=== PATIENT | male | born 1955 | race Asian ===

== ENCOUNTER 2023-03-03 17:46 | Inpatient (IN) | payer MEDICARE ==
[~2023-03-03] VITALS: Ht 170.2 cm; Wt 84.8 kg
[2023-03-03 20:52] LABS: BASOPHILS % (AUTO) 0.5 % (0.0-2.0); EOSINOPHILS # (AUTO) 0.1 K/uL (0.0-0.7); EOSINOPHILS % (AUTO) 2.3 % (0.0-6.0); HEMATOCRIT 39 % (39-51); HEMOGLOBIN 13.4 g/dL (13.5-17.5); LYMPHOCYTES # (AUTO) 2.2 K/uL (0.8-4.8); LYMPHOCYTES % (AUTO) 35.2 % (20.0-44.0); MEAN CORPUSCULAR HEMOGLOBIN 29 PG (26.0-33.0); MEAN CORPUSCULAR HGB CONC 35 g/dl (31.0-36.0); MEAN CORPUSCULAR VOLUME 85 fL (80-96); MONOCYTES # (AUTO) 0.6 K/uL (0.1-1.30); MONOCYTES % (AUTO) 9.5 % (2.0-12.0); NEUTROPHILS # (AUTO) 3.3 K/uL (1.8-8.9); NEUTROPHILS % (AUTO) 52.5 % (43.0-81.0); PLATELET COUNT (AUTO) 281 K/uL (150-450); RED BLOOD CELL COUNT(AUTO) 4.59 MIL/uL (4.5-6.0); WHITE BLOOD COUNT (AUTO) 6.4 K/uL (4.3-11.0)
[2023-03-03 21:05] LABS: CREATININE 0.8 mg/dL (0.6-1.3); POTASSIUM 3.9 mmol/L (3.5-5.1)
[2023-03-03 21:11] LABS: ALBUMIN 4.2 g/dL (3.4-5.0); BILIRUBIN,TOTAL 0.6 mg/dL (0.2-1.0)
[2023-03-03] MEDS ORDERED: ASPIRIN 325 MG TABLET PO ONE (21:30)
[2023-03-03] MEDS ORDERED: IV NS 0.9% 1,000 ML BAG IV ONE (21:30)
[2023-03-03] MEDS ORDERED: ACETAMINOPHEN ES 500 MG TABLET ONE (22:25)
[2023-03-03] MEDS ORDERED: ACETAMINOPHEN ES 500 MG TABLET PO ONE (22:30)
[2023-03-03] MEDS ORDERED: LABETALOL HCL IV 100MG VIAL IV ONE (23:00)
[2023-03-03 23:45] VITALS: BP 180/98; TEMP 97.9; O2SAT 100
[2023-03-04] MEDS ORDERED: MAG HYDROX/AL HYDROX/SIMETH 30 ML UDC PO PRN
[2023-03-04] MEDS ORDERED: ENOXAPARIN SODIUM 100 MG/ML DISP.SYRIN SQ SCH
[2023-03-04] MEDS: ATORVASTATIN 10 MG TABLET PO SCH ×2 (00:21→21:47)
[2023-03-04 01:08] VITALS: BP 180/98; TEMP 98; O2SAT 99
[2023-03-04] MEDS: ACETAMINOPHEN 325 MG TABLET PO PRN ×2 (01:20→11:59)
[2023-03-04 04:00] VITALS: BP 166/97; TEMP 97.5; O2SAT 98
[2023-03-04] MEDS: hydrALAZINE HCL IV 20 MG VIAL IV PRN ×2 (04:47→18:45)
[2023-03-04 06:44] LABS: BASOPHILS % (AUTO) 0.5 % (0.0-2.0); EOSINOPHILS # (AUTO) 0.1 K/uL (0.0-0.7); EOSINOPHILS % (AUTO) 2.6 % (0.0-6.0); HEMATOCRIT 37 % (39-51); HEMOGLOBIN 12.7 g/dL (13.5-17.5); LYMPHOCYTES # (AUTO) 2.1 K/uL (0.8-4.8); LYMPHOCYTES % (AUTO) 39.4 % (20.0-44.0); MEAN CORPUSCULAR HEMOGLOBIN 29 PG (26.0-33.0); MEAN CORPUSCULAR HGB CONC 34 g/dl (31.0-36.0); MEAN CORPUSCULAR VOLUME 85 fL (80-96); MONOCYTES # (AUTO) 0.6 K/uL (0.1-1.30); MONOCYTES % (AUTO) 10.8 % (2.0-12.0); NEUTROPHILS # (AUTO) 2.5 K/uL (1.8-8.9); NEUTROPHILS % (AUTO) 46.7 % (43.0-81.0); PLATELET COUNT (AUTO) 251 K/uL (150-450); RED BLOOD CELL COUNT(AUTO) 4.37 MIL/uL (4.5-6.0); RED CELL DISTRIBUTION WIDTH 13.6 % (11.5-15.0); WHITE BLOOD COUNT (AUTO) 5.3 K/uL (4.3-11.0)
[2023-03-04 06:57] LABS: CALCIUM, SERUM 8.4 mg/dL (8.5-10.1); CREATININE 0.8 mg/dL (0.6-1.3); MAGNESIUM 2.1 mg/dL (1.8-2.4); PHOSPHORUS 3.7 mg/dL (2.5-4.9); POTASSIUM 3.3 mmol/L (3.5-5.1)
[2023-03-04] MEDS ORDERED: GLIM2TAB31 PO (08:48)
[2023-03-04] MEDS ORDERED: LOSA1TAB36 PO (08:48)
[2023-03-04] MEDS ORDERED: LISINOPRIL (10MG) 10 MG TABLET PO SCH (09:00)
[2023-03-04] MEDS: POTASSIUM CHLORIDE 20 MEQ TAB.PRT.SR PO SCH ×2 (09:13→09:20)
[2023-03-04] MEDS: METOPROLOL TARTRATE 50 MG TABLET PO SCH ×2 (09:14→22:21)
[2023-03-04] MEDS: ASPIRIN 81 MG TAB.CHEW PO SCH (09:15)
[2023-03-04] MEDS: LISINOPRIL (10MG) 10 MG TABLET PO SCH (09:19)
[2023-03-04] MEDS: ENOXAPARIN SODIUM 80 MG/0.8 ML DISP.SYRIN SQ SCH ×2 (09:19→22:22)
[2023-03-04] MEDS: ONDANSETRON HCL/PF 4 MG/2 ML VIAL IVP PRN (09:51)
[2023-03-04] MEDS ORDERED: IOHEXOL-350 100 ML VIAL IV ONE (11:15)
[2023-03-04] MEDS ORDERED: NITROGLYCERIN 0.4 MG/TAB BOTTLE ONE (11:15)
[2023-03-04] MEDS ORDERED: METOPROLOL TARTRATE INJ 5 MG/5 ML AMPUL ONE ×2 (11:16→11:30)
[2023-03-04] MEDS ORDERED: IV NS 0.9% 250 ML IV ONE (11:16)
[2023-03-04] MEDS ORDERED: CT SWABBABLE VALVE TRANS SET 1 EA INFUS.SET MC ONE (11:16)
[2023-03-04] MEDS: METOPROLOL TARTRATE INJ 5 MG/5 ML AMPUL IVP PRN ×4 (11:20→11:35)
[2023-03-04] MEDS ORDERED: NITROGLYCERIN 0.4 MG/TAB BOTTLE SL ONE (11:30)
[2023-03-04] MEDS ORDERED: LORAZEPAM 1 MG TABLET PO PRN (16:00)
[2023-03-04 23:10] VITALS: BP 133/81
[2023-03-05] MEDS: ZOLPIDEM TARTRATE 5 MG TABLET PO PRN ×2 (02:08→23:29)
[2023-03-05] MEDS: ONDANSETRON HCL/PF 4 MG/2 ML VIAL IVP PRN (02:54)
[2023-03-05 06:24] LABS: BASOPHILS % (AUTO) 0.4 % (0.0-2.0); EOSINOPHILS # (AUTO) 0.1 K/uL (0.0-0.7); EOSINOPHILS % (AUTO) 1.1 % (0.0-6.0); HEMATOCRIT 41 % (39-51); HEMOGLOBIN 14.5 g/dL (13.5-17.5); LYMPHOCYTES # (AUTO) 1.1 K/uL (0.8-4.8); LYMPHOCYTES % (AUTO) 14.9 % (20.0-44.0); MEAN CORPUSCULAR HEMOGLOBIN 29 PG (26.0-33.0); MEAN CORPUSCULAR HGB CONC 35 g/dl (31.0-36.0); MEAN CORPUSCULAR VOLUME 84 fL (80-96); MONOCYTES % (AUTO) 12.9 % (2.0-12.0); NEUTROPHILS # (AUTO) 5.3 K/uL (1.8-8.9); NEUTROPHILS % (AUTO) 70.7 % (43.0-81.0); PLATELET COUNT (AUTO) 281 K/uL (150-450); RED BLOOD CELL COUNT(AUTO) 4.94 MIL/uL (4.5-6.0); RED CELL DISTRIBUTION WIDTH 13.8 % (11.5-15.0); WHITE BLOOD COUNT (AUTO) 7.5 K/uL (4.3-11.0)
[2023-03-05 06:41] LABS: ALBUMIN 4.1 g/dL (3.4-5.0); CALCIUM, SERUM 8.9 mg/dL (8.5-10.1); CREATININE 0.8 mg/dL (0.6-1.3); MAGNESIUM 2.1 mg/dL (1.8-2.4); PHOSPHORUS 3.8 mg/dL (2.5-4.9); POTASSIUM 3.9 mmol/L (3.5-5.1); TOTAL PROTEIN, SERUM 8.1 g/dL (6.4-8.2)
[2023-03-05 08:00] VITALS: BP 155/90; TEMP 99.5; O2SAT 97
[2023-03-05] MEDS: METOPROLOL TARTRATE 50 MG TABLET PO SCH ×2 (08:15→22:08)
[2023-03-05] MEDS: LISINOPRIL (10MG) 10 MG TABLET PO SCH (08:15)
[2023-03-05] MEDS ORDERED: IV Sodium Chloride 3% 500 ML 500 ML IV SCH ×2 (08:30→23:00)
[2023-03-05] MEDS: ASPIRIN 81 MG TAB.CHEW PO SCH ×2 (09:00→13:44)
[2023-03-05] MEDS: ENOXAPARIN SODIUM 80 MG/0.8 ML DISP.SYRIN SQ SCH ×3 (09:00→22:28)
[2023-03-05] MEDS: hydrALAZINE HCL IV 20 MG VIAL IV PRN (09:25)
[2023-03-05 09:46] LABS: INR 1.01 (0.91-1.10); PROTHROMBIN TIME 10.7 SECS (9.2-11.1)
[2023-03-05] MEDS ORDERED: NITROGLYCERIN IN 5 % DEXTROSE 250 ML IV ONE (10:29)
[2023-03-05] MEDS ORDERED: IV SET PRIMARY PUMP SET 1 EA INFUS.SET MC ONE (10:29)
[2023-03-05] MEDS ORDERED: LIDOCAINE HCL/MPF 1% 30 ML VIAL IJ ONE (10:29)
[2023-03-05] MEDS ORDERED: IV NS 0.9% 1,000 ML ONE (10:29)
[2023-03-05] MEDS ORDERED: IODIXANOL 150 ML IV ONE (10:56)
[2023-03-05 12:00] VITALS: BP 126/79; TEMP 99; O2SAT 96
[2023-03-05 12:57] LABS: CALCIUM, SERUM 8.7 mg/dL (8.5-10.1); CREATININE 0.9 mg/dL (0.6-1.3); POTASSIUM 3.8 mmol/L (3.5-5.1)
[2023-03-05] MEDS: ACETAMINOPHEN 325 MG TABLET PO PRN (13:01)
[2023-03-05 16:00] VITALS: BP 116/81; TEMP 98.6; O2SAT 98
[2023-03-05 20:00] VITALS: BP 131/86; TEMP 98.4; O2SAT 96
[2023-03-05] MEDS: BENZONATATE 100 MG CAPSULE PO PRN (20:30)
[2023-03-05] MEDS: ATORVASTATIN 10 MG TABLET PO SCH (21:49)
[2023-03-06] VITALS: BP 137/88; TEMP 97.5; O2SAT 98
[2023-03-06] MEDS ORDERED: IV Sodium Chloride 3% 500 ML 500 ML IV ONE (01:22)
[2023-03-06 04:00] VITALS: BP 148/68; TEMP 99; O2SAT 97
[2023-03-06 06:34] LABS: BASOPHILS % (AUTO) 0.5 % (0.0-2.0); EOSINOPHILS # (AUTO) 0.1 K/uL (0.0-0.7); EOSINOPHILS % (AUTO) 1.5 % (0.0-6.0); HEMATOCRIT 39 % (39-51); HEMOGLOBIN 13.4 g/dL (13.5-17.5); LYMPHOCYTES # (AUTO) 1.5 K/uL (0.8-4.8); LYMPHOCYTES % (AUTO) 26.7 % (20.0-44.0); MEAN CORPUSCULAR HEMOGLOBIN 30 PG (26.0-33.0); MEAN CORPUSCULAR HGB CONC 35 g/dl (31.0-36.0); MEAN CORPUSCULAR VOLUME 86 fL (80-96); MONOCYTES # (AUTO) 0.9 K/uL (0.1-1.30); NEUTROPHILS # (AUTO) 3.1 K/uL (1.8-8.9); NEUTROPHILS % (AUTO) 55.3 % (43.0-81.0); PLATELET COUNT (AUTO) 223 K/uL (150-450); RED BLOOD CELL COUNT(AUTO) 4.52 MIL/uL (4.5-6.0); RED CELL DISTRIBUTION WIDTH 13.8 % (11.5-15.0); WHITE BLOOD COUNT (AUTO) 5.7 K/uL (4.3-11.0)
[2023-03-06 07:11] LABS: CALCIUM, SERUM 8.1 mg/dL (8.5-10.1); CREATININE 0.8 mg/dL (0.6-1.3); MAGNESIUM 2.3 mg/dL (1.8-2.4)
[2023-03-06] MEDS: BENZONATATE 100 MG CAPSULE PO PRN ×2 (08:19→21:36)
[2023-03-06] MEDS ORDERED: LOSA1TAB36 PO (08:32)
[2023-03-06] MEDS ORDERED: ROSU20TA2 PO (08:33)
[2023-03-06] MEDS ORDERED: PANT20TA2 PO (08:36)
[2023-03-06] MEDS ORDERED: DAPA10TA PO (08:37)
[2023-03-06] MEDS: ASPIRIN 81 MG TAB.CHEW PO SCH (09:20)
[2023-03-06] MEDS: METOPROLOL TARTRATE 50 MG TABLET PO SCH ×2 (09:20→21:11)
[2023-03-06] MEDS: LISINOPRIL (10MG) 10 MG TABLET PO SCH (09:20)
[2023-03-06 09:30] VITALS: BP 135/84; TEMP 98.6; O2SAT 94
[2023-03-06] MEDS ORDERED: ENOXAPARIN SODIUM 80 MG/0.8 ML DISP.SYRIN SQ SCH (11:00)
[2023-03-06 13:00] VITALS: BP 122/86; TEMP 98.7; O2SAT 94
[2023-03-06] MEDS: ENOXAPARIN SODIUM 40 MG/0.4 ML DISP.SYRIN SQ SCH (15:26)
[2023-03-06 16:00] VITALS: BP 131/73; TEMP 98.5; O2SAT 98
[2023-03-06 20:00] VITALS: BP 160/84; TEMP 98.6; O2SAT 98
[2023-03-06] MEDS: ATORVASTATIN 10 MG TABLET PO SCH (21:12)
[2023-03-06] MEDS: ZOLPIDEM TARTRATE 5 MG TABLET PO PRN (23:24)
[2023-03-07 00:09] VITALS: BP 142/73; TEMP 97.5; O2SAT 98
[2023-03-07 04:00] VITALS: BP 150/67; TEMP 98.1; O2SAT 96
[2023-03-07 07:22] LABS: BASOPHILS % (AUTO) 0.5 % (0.0-2.0); EOSINOPHILS # (AUTO) 0.2 K/uL (0.0-0.7); EOSINOPHILS % (AUTO) 4.4 % (0.0-6.0); HEMATOCRIT 38 % (39-51); HEMOGLOBIN 12.9 g/dL (13.5-17.5); LYMPHOCYTES # (AUTO) 1.6 K/uL (0.8-4.8); LYMPHOCYTES % (AUTO) 34.9 % (20.0-44.0); MEAN CORPUSCULAR HEMOGLOBIN 30 PG (26.0-33.0); MEAN CORPUSCULAR HGB CONC 34 g/dl (31.0-36.0); MEAN CORPUSCULAR VOLUME 86 fL (80-96); MONOCYTES # (AUTO) 0.7 K/uL (0.1-1.30); MONOCYTES % (AUTO) 14.5 % (2.0-12.0); NEUTROPHILS # (AUTO) 2.1 K/uL (1.8-8.9); NEUTROPHILS % (AUTO) 45.7 % (43.0-81.0); PLATELET COUNT (AUTO) 226 K/uL (150-450); RED BLOOD CELL COUNT(AUTO) 4.36 MIL/uL (4.5-6.0); RED CELL DISTRIBUTION WIDTH 13.9 % (11.5-15.0); WHITE BLOOD COUNT (AUTO) 4.6 K/uL (4.3-11.0)
[2023-03-07 07:30] LABS: CALCIUM, SERUM 8.4 mg/dL (8.5-10.1); CREATININE 0.8 mg/dL (0.6-1.3); MAGNESIUM 2.3 mg/dL (1.8-2.4); PHOSPHORUS 3.3 mg/dL (2.5-4.9); POTASSIUM 4.2 mmol/L (3.5-5.1)
[2023-03-07 08:00] VITALS: BP 149/84; TEMP 98.4; O2SAT 98
[2023-03-07] MEDS: ASPIRIN 81 MG TAB.CHEW PO SCH (09:12)
[2023-03-07] MEDS: METOPROLOL TARTRATE 50 MG TABLET PO SCH ×2 (09:13→21:06)
[2023-03-07] MEDS: LISINOPRIL (10MG) 10 MG TABLET PO SCH (09:13)
[2023-03-07] MEDS: ENOXAPARIN SODIUM 40 MG/0.4 ML DISP.SYRIN SQ SCH (09:14)
[2023-03-07 12:00] VITALS: BP 135/81; TEMP 97.7; O2SAT 99
[2023-03-07 13:26] LABS: CALCIUM, SERUM 8.4 mg/dL (8.5-10.1); CREATININE 0.8 mg/dL (0.6-1.3)
[2023-03-07 16:00] VITALS: BP 138/81; TEMP 98.6; O2SAT 98
[2023-03-07 20:00] VITALS: BP 136/78; TEMP 98.6; O2SAT 98
[2023-03-07] MEDS: ATORVASTATIN 10 MG TABLET PO SCH (21:06)
[2023-03-07] MEDS: BENZONATATE 100 MG CAPSULE PO PRN (21:06)
[2023-03-08] VITALS: BP 162/96; TEMP 97.5; O2SAT 96
[2023-03-08] MEDS: ZOLPIDEM TARTRATE 5 MG TABLET PO PRN ×2 (00:19→23:10)
[2023-03-08 05:00] VITALS: BP 134/93; TEMP 98.2; O2SAT 95
[2023-03-08] MEDS: BENZONATATE 100 MG CAPSULE PO PRN ×3 (05:50→21:51)
[2023-03-08 07:03] LABS: BASOPHILS % (AUTO) 0.5 % (0.0-2.0); EOSINOPHILS # (AUTO) 0.3 K/uL (0.0-0.7); EOSINOPHILS % (AUTO) 4.9 % (0.0-6.0); HEMATOCRIT 38 % (39-51); HEMOGLOBIN 12.8 g/dL (13.5-17.5); LYMPHOCYTES # (AUTO) 1.9 K/uL (0.8-4.8); LYMPHOCYTES % (AUTO) 36.8 % (20.0-44.0); MEAN CORPUSCULAR HEMOGLOBIN 29 PG (26.0-33.0); MEAN CORPUSCULAR HGB CONC 34 g/dl (31.0-36.0); MEAN CORPUSCULAR VOLUME 87 fL (80-96); MONOCYTES # (AUTO) 0.5 K/uL (0.1-1.30); MONOCYTES % (AUTO) 10.2 % (2.0-12.0); NEUTROPHILS # (AUTO) 2.5 K/uL (1.8-8.9); NEUTROPHILS % (AUTO) 47.6 % (43.0-81.0); PLATELET COUNT (AUTO) 241 K/uL (150-450); RED BLOOD CELL COUNT(AUTO) 4.38 MIL/uL (4.5-6.0); RED CELL DISTRIBUTION WIDTH 13.9 % (11.5-15.0); WHITE BLOOD COUNT (AUTO) 5.2 K/uL (4.3-11.0)
[2023-03-08 07:30] VITALS: BP 138/95; TEMP 97.8; O2SAT 97
[2023-03-08 08:01] LABS: CALCIUM, SERUM 8.5 mg/dL (8.5-10.1); CREATININE 0.8 mg/dL (0.6-1.3); MAGNESIUM 2.1 mg/dL (1.8-2.4); PHOSPHORUS 4.2 mg/dL (2.5-4.9); POTASSIUM 4.2 mmol/L (3.5-5.1)
[2023-03-08] MEDS: LISINOPRIL (10MG) 10 MG TABLET PO SCH (08:16)
[2023-03-08] MEDS: METOPROLOL TARTRATE 50 MG TABLET PO SCH ×2 (08:16→21:17)
[2023-03-08] MEDS: ASPIRIN 81 MG TAB.CHEW PO SCH (08:16)
[2023-03-08] MEDS: ENOXAPARIN SODIUM 40 MG/0.4 ML DISP.SYRIN SQ SCH (08:18)
[2023-03-08 16:00] VITALS: BP 132/78; TEMP 97.7; O2SAT 100
[2023-03-08 20:00] VITALS: BP 127/77; TEMP 98.3; O2SAT 97
[2023-03-08] MEDS: ATORVASTATIN 10 MG TABLET PO SCH (21:17)
[2023-03-09 05:00] VITALS: BP 150/68; TEMP 98.1; O2SAT 97
[2023-03-09] MEDS: BENZONATATE 100 MG CAPSULE PO PRN ×3 (06:24→20:07)
[2023-03-09] MEDS ORDERED: IV SET PRIMARY PUMP SET 1 EA INFUS.SET MC ONE (06:44)
[2023-03-09] MEDS ORDERED: IODIXANOL 150 ML IV ONE (06:44)
[2023-03-09] MEDS ORDERED: IV NS 0.9% 1,000 ML ONE (06:44)
[2023-03-09] MEDS ORDERED: NITROGLYCERIN IN 5 % DEXTROSE 250 ML IV ONE (06:45)
[2023-03-09] MEDS ORDERED: LIDOCAINE HCL/MPF 1% 30 ML VIAL IJ ONE (06:45)
[2023-03-09 06:51] LABS: BASOPHILS % (AUTO) 0.2 % (0.0-2.0); EOSINOPHILS # (AUTO) 0.3 K/uL (0.0-0.7); HEMATOCRIT 39 % (39-51); HEMOGLOBIN 13.3 g/dL (13.5-17.5); LYMPHOCYTES # (AUTO) 2.2 K/uL (0.8-4.8); LYMPHOCYTES % (AUTO) 39.5 % (20.0-44.0); MEAN CORPUSCULAR HEMOGLOBIN 30 PG (26.0-33.0); MEAN CORPUSCULAR HGB CONC 34 g/dl (31.0-36.0); MEAN CORPUSCULAR VOLUME 87 fL (80-96); MONOCYTES # (AUTO) 0.6 K/uL (0.1-1.30); MONOCYTES % (AUTO) 10.7 % (2.0-12.0); NEUTROPHILS # (AUTO) 2.5 K/uL (1.8-8.9); NEUTROPHILS % (AUTO) 44.6 % (43.0-81.0); PLATELET COUNT (AUTO) 260 K/uL (150-450); RED BLOOD CELL COUNT(AUTO) 4.49 MIL/uL (4.5-6.0); RED CELL DISTRIBUTION WIDTH 13.5 % (11.5-15.0); WHITE BLOOD COUNT (AUTO) 5.6 K/uL (4.3-11.0)
[2023-03-09 07:00] LABS: INR 0.97 (0.91-1.10); PARTIAL THROMBOPLASTIN TIME 39.3 SEC (24.3-34.3); PROTHROMBIN TIME 10.3 SECS (9.2-11.1)
[2023-03-09 07:30] LABS: CALCIUM, SERUM 8.8 mg/dL (8.5-10.1); CREATININE 0.8 mg/dL (0.6-1.3); MAGNESIUM 2.1 mg/dL (1.8-2.4); PHOSPHORUS 4.5 mg/dL (2.5-4.9)
[2023-03-09] MEDS ORDERED: MIDAZOLAM HCL 2 MG/2ML VIAL ONE (07:44)
[2023-03-09] MEDS ORDERED: FENTANYL PF 100MCG/2ML AMPUL ONE (07:44)
[2023-03-09] MEDS: ASPIRIN 81 MG TAB.CHEW PO SCH (10:25)
[2023-03-09] MEDS: METOPROLOL TARTRATE 50 MG TABLET PO SCH ×2 (10:26→20:07)
[2023-03-09] MEDS: AMLODIPINE BESYLATE 5 MG TABLET PO SCH (10:27)
[2023-03-09] MEDS: LISINOPRIL (10MG) 10 MG TABLET PO SCH (10:27)
[2023-03-09] MEDS: hydrALAZINE HCL IV 20 MG VIAL IV PRN (12:46)
[2023-03-09] MEDS: ENOXAPARIN SODIUM 40 MG/0.4 ML DISP.SYRIN SQ SCH (14:23)
[2023-03-09 20:00] VITALS: BP 118/72; TEMP 97.7; O2SAT 96
[2023-03-09] MEDS: ACETAMINOPHEN 325 MG TABLET PO PRN (20:23)
[2023-03-09] MEDS: ATORVASTATIN 10 MG TABLET PO SCH (22:00)
[2023-03-10] VITALS: BP 129/86; TEMP 97.7; O2SAT 96
[2023-03-10 04:41] VITALS: BP 147/20; TEMP 97.8; O2SAT 99
[2023-03-10 08:00] VITALS: BP 147/86; TEMP 98.6; O2SAT 96
[2023-03-10 08:46] VITALS: BP 147/86
[2023-03-10] MEDS: AMLODIPINE BESYLATE 5 MG TABLET PO SCH (08:46)
[2023-03-10] MEDS: LISINOPRIL (10MG) 10 MG TABLET PO SCH (08:46)
[2023-03-10] MEDS: METOPROLOL TARTRATE 50 MG TABLET PO SCH (08:46)
[2023-03-10] MEDS: ASPIRIN 81 MG TAB.CHEW PO SCH (08:46)
[2023-03-10] MEDS: ENOXAPARIN SODIUM 40 MG/0.4 ML DISP.SYRIN SQ SCH (08:47)
[2023-03-10] MEDS: BENZONATATE 100 MG CAPSULE PO PRN (08:52)
== END 2023-03-10 14:00 | disposition left against medical advice (07) | DRG 281 ==
LOC: ER 17:58 → TELE 23:25 → ICU 03-09 08:45 → TELE 03-09 14:41
PROVIDERS: ADMIT Nurse Practitioner Acute Care; ATTEND Student in an Organized Health Care Education/Training Program
PROC: 4A023N7 Measurement of Cardiac Sampling and Pressure, Left Heart, Percutaneous Approach (ICD-10-PCS; principal; 2023-03-09)
PROC: B211YZZ Fluoroscopy of Multiple Coronary Arteries using Other Contrast (ICD-10-PCS; 2023-03-09)
PROC: B41FYZZ Fluoroscopy of Right Lower Extremity Arteries using Other Contrast (ICD-10-PCS; 2023-03-09)
DX: I16.0 Hypertensive urgency (principal); I21.A1 Myocardial infarction type 2; D68.59 Other primary thrombophilia; E87.1 Hypo-osmolality and hyponatremia; E11.9 Type 2 diabetes mellitus without complications; I10 Essential (primary) hypertension; E66.9 Obesity, unspecified; Z68.29 Body mass index [BMI] 29.0-29.9, adult; Z53.29 Procedure and treatment not carried out because of patient's decision for other reasons; Z91.148 Patient's other noncompliance with medication regimen for other reason; I25.10 Atherosclerotic heart disease of native coronary artery without angina pectoris; K29.70 Gastritis, unspecified, without bleeding; E78.5 Hyperlipidemia, unspecified; Z79.84 Long term (current) use of oral hypoglycemic drugs; Z79.899 Other long term (current) drug therapy; Z79.01 Long term (current) use of anticoagulants; T50.2X5A Adverse effect of carbonic-anhydrase inhibitors, benzothiadiazides and other diuretics, initial encounter; Y92.9 Unspecified place or not applicable
CPT/HCPCS: 36415; 71045-TC; 75574; 80048-TC; 80053-TC; 80061-TC; 82533; 83735-TC; 83880; 83935-TC; 84100-TC; 84300-TC; 84443-TC; 84484-TC; 85025-TC; 85610-TC; 85730-TC; 93307-TC; 93880-TC; A4223; C1887; C1894; G0378; G0500; J0360; J1644; J1650; J2250; J2405; J3010; J3490; J7030; J7050; Q9967